=== PATIENT | male | born 2000 | race Caucasian/White ===

== ENCOUNTER 2021-08-04 18:33 | Emergency (ER) | payer BC ==
[~2021-08-04] VITALS: Ht 167.6 cm; Wt 90.7 kg
[2021-08-04] MEDS ORDERED: PROAIR HFA8.5 GM INH (18:41)
[2021-08-04 20:26] VITALS: BP 165/106
== END 2021-08-04 20:26 | disposition home or self-care (01) ==
LOC: M.ERS 18:33
DX: R20.2 Paresthesia of skin (principal); J45.909 Unspecified asthma, uncomplicated; Z79.899 Other long term (current) drug therapy; Z88.8 Allergy status to other drugs, medicaments and biological substances